=== PATIENT | female | born 1950 | race Caucasian/White ===

== ENCOUNTER → 2016-11-16 | Outpatient (CLI) | payer MEDICARE, OTHER ==
--- NOTE | 2016-11-16 10:59 | RAD ---
Bone Densitometry History: Ovarian failure, postmenopausal screening, white female, calcium use. Comparison: 10/31/2012. Findings: Bone Densitometry was performed with dual photon absorption of the lumbar spine and proximal right femur. Lumbar Spine: Bone density is 0.903 g/cm2 for L1-L4. T-score is -2.3. There has been decrease of bone mineral density as previous study gave T score of -2.1. Right Femur: Bone density is 0.887 g/cm2. T-score is -1.0. There has been increase in bone mineral density as previous study gave T score of -1.2. Impression: 1. Osteopenia of the lumbar spine. 2. Bone mineral density of the proximal right femur is at the lower limits of normal. World Health Organization definition of osteoporosis and osteopenia for women: normal equals T score at or above -1.0 standard deviations; osteopenia equals T score between -1.0 and -2.5 standard deviations; osteoporosis equals T score at or below -2.5 standard deviations.
== END | disposition home or self-care (01) ==
LOC: MAMMO 09:41
PROVIDERS: ATTEND Nurse Practitioner Family
DX: Z12.31 Encounter for screening mammogram for malignant neoplasm of breast (principal); M85.88 Other specified disorders of bone density and structure, other site; E28.39 Other primary ovarian failure; M81.0 Age-related osteoporosis without current pathological fracture
CPT/HCPCS: 77063; 77080; G0202; 77067

== ENCOUNTER → 2017-10-06 | Day surgery (SDC) | payer MEDICARE, OTHER ==
[~2017-10-06] MED LIST: CALC-157 PO; DILT240C2 PO; ESOM40CA PO; GLUC100018 PO; IV RINGERS SOLUTION,LACTATED 1,000 ML BAG. IV ONE; IV RINGERS SOLUTION,LACTATED 1,000 ML IV ONE; IV RINGERS SOLUTION,LACTATED 1,000 ML IV SCH; LIDOCAINE 2% PF Vial for OR 5 ML VIAL. ONE; PHEN37.598 PO; PROPOFOL 0 ML IV ONE; PROPOFOL 10,000 MCG/ML (20ML) VIAL IV ONE; PROPOFOL 20 ML IV ONE
[2017-10-06 13:42] VITALS: BP 159/79
== END | disposition home or self-care (01) ==
LOC: SURG 11:23
PROVIDERS: ATTEND Internal Medicine Gastroenterology
DX: K29.70 Gastritis, unspecified, without bleeding (principal); K21.9 Gastro-esophageal reflux disease without esophagitis; K46.9 Unspecified abdominal hernia without obstruction or gangrene; K44.9 Diaphragmatic hernia without obstruction or gangrene; I10 Essential (primary) hypertension; E78.5 Hyperlipidemia, unspecified; M85.88 Other specified disorders of bone density and structure, other site; E55.9 Vitamin D deficiency, unspecified; Z90.710 Acquired absence of both cervix and uterus; Z98.890 Other specified postprocedural states
CPT/HCPCS: 43235; 43239; J2704; J7120; J2001

== ENCOUNTER → 2017-11-29 | Outpatient (CLI) | payer MEDICARE, OTHER ==
[2017-10-06 13:42] VITALS: BP 159/79
[~2017-11-29] MED LIST changes: +CHOL100013 PO; -IV RINGERS SOLUTION,LACTATED 1,000 ML BAG. IV ONE; -IV RINGERS SOLUTION,LACTATED 1,000 ML IV ONE; -IV RINGERS SOLUTION,LACTATED 1,000 ML IV SCH; -LIDOCAINE 2% PF Vial for OR 5 ML VIAL. ONE; +PANT40TA5 PO; -PROPOFOL 0 ML IV ONE; -PROPOFOL 10,000 MCG/ML (20ML) VIAL IV ONE; -PROPOFOL 20 ML IV ONE
[2017-11-29 12:22] LABS: ALBUMIN 3.7 g/dL (3.4-5.0); CREATININE 0.7 mg/dL (0.6-1.0); DIRECT BILIRUBIN 0.1 mg/dL (0.0-0.2); POTASSIUM 4.1 mmol/L (3.5-5.1); TOTAL BILIRUBIN 0.3 mg/dL (0.2-1.0); TOTAL PROTEIN 7.1 g/dL (6.4-8.2)
--- NOTE | 2017-11-29 13:54 | RAD ---
3 views right wrist 11/29/2017 Clinical indication: Right wrist pain. Comparison: None. Findings: There is mild radial subluxation at the CMC articulation. Severe first CMC asked or arthritis. Normal alignment of the carpal bones. Mild radiocarpal degenerative changes. No acute fracture. Impression: 1. 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 2. No acute fracture. 3. Mild radiocarpal degenerative changes.
--- NOTE | 2017-11-30 12:34 | RAD ---
DATE: 11/29/2017 EXAM: MAMMO REJI SCREENING BILATERAL HISTORY: Screening Mammogram COMPARISON: Screening mammogram 11/16/2016, 10/28/2011 This study was interpreted with the benefit of Computerized Aided Detection (CAD). The breast parenchyma is heterogeneously dense, which could reduce sensitivity of mammography. Breast parenchyma level C. FINDINGS: Bilateral digital 2-D and 3-D tomosynthesis CC and MLO views. No suspicious mass, calcification or architectural distortion. No significant change from prior examination IMPRESSION: No mammographic evidence of malignancy. Recommend routine screening mammogram in 12 months. BI-RADS CATEGORY: 1 NEGATIVE RECOMMENDED FOLLOW-UP: 12M 12 MONTH FOLLOW-UP PQRS compliance statement: Patient information was entered into a reminder system with a target due date for the next mammogram. Mammography is a sensitive method for finding small breast cancers, but it does not detect them all and is not a substitute for careful clinical examination. A negative mammogram does not negate a clinically suspicious finding and should not result in delay in biopsying a clinically suspicious abnormality. "Our facility is accredited by the [employer] Mammography Program."
== END | disposition home or self-care (01) ==
LOC: PMG 11:02
PROVIDERS: ATTEND Nurse Practitioner Family
DX: Z12.31 Encounter for screening mammogram for malignant neoplasm of breast (principal); S63.041A Subluxation of carpometacarpal joint of right thumb, initial encounter; M19.031 Primary osteoarthritis, right wrist; E78.5 Hyperlipidemia, unspecified; I10 Essential (primary) hypertension; E55.9 Vitamin D deficiency, unspecified; X58.XXXA Exposure to other specified factors, initial encounter; Y93.89 Activity, other specified; Y92.89 Other specified places as the place of occurrence of the external cause; Y99.8 Other external cause status
CPT/HCPCS: 36415; 73100; 77063; 77067; 80048; 80061; 80076

== ENCOUNTER → 2017-12-08 | Day surgery (SDC) | payer MEDICARE, OTHER ==
[~2017-12-08] MED LIST changes: +ALBUTEROL SULFATE 2.5 MG/3 ML NEBU. NEB PRN; +ATROPINE 0.5 MG/5 ML DISP.SYRIN. IV PRN; +IV RINGERS SOLUTION,LACTATED 1,000 ML IV SCH; +LIDOCAINE 2% PF Vial for OR 5 ML VIAL. ONE; +LOSA50TA6 PO; +MIDAZOLAM HCL PF 2 MG/2 ML VIAL. IV ONE; +NALOXONE 0.4 MG/ML VIAL. IV PRN; +ONDANSETRON PF 4 MG/2 ML VIAL. IV PRN; +PROPOFOL 40 ML IV ONE; +diphenhydrAMINE 50 MG/ML VIAL IV PRN
[2017-12-08 12:14] VITALS: BP 139/74
== END | disposition home or self-care (01) ==
LOC: SURG 09:27
PROVIDERS: ATTEND Internal Medicine Gastroenterology
DX: Z12.11 Encounter for screening for malignant neoplasm of colon (principal); I10 Essential (primary) hypertension; E78.5 Hyperlipidemia, unspecified; K21.9 Gastro-esophageal reflux disease without esophagitis; M19.90 Unspecified osteoarthritis, unspecified site; Z72.89 Other problems related to lifestyle; Z90.710 Acquired absence of both cervix and uterus; Z98.890 Other specified postprocedural states; Z79.899 Other long term (current) drug therapy; M85.80 Other specified disorders of bone density and structure, unspecified site; E55.9 Vitamin D deficiency, unspecified; Z98.49 Cataract extraction status, unspecified eye
CPT/HCPCS: 45378; J2704; J7120; J2001